=== PATIENT | female | born 1995 | race African-American/Black ===

== ENCOUNTER 2018-08-15 16:33 | Emergency (ER) | payer OTHER ==
[~2018-08-15] VITALS: Ht 152.4 cm; Wt 72.6 kg
--- NOTE | ~2018-08-15 | EKG ---
[address] [address] [facility] [address] ELECTROCARDIOGRAM REPORT Name: KATEY SAMS Room #: [facility] EDDIE Champion#: [id number] Admission: 08/15/18 Attend Phys: Discharge: 08/15/18 Date of : [birth year] Report #: [id number] THIS REPORT FOR: //name// [facility] ED Test Date: 2018-08-15 Test Time: 16:48:29 Pat Name: KATEY SAMS Department: Room: Gender: Diet Therapist: JLNAMRATA : 1995 Requested By: Filiberto Peoples Order Number: [id number] MD: Reyes Mcwilliams Measurements Intervals [place] Rate: 71 P: 8 CT: 153 QRS: 23 QRSD: 86 T: 12 QT: 372 QTc: 405 Interpretive Statements Sinus rhythm RSR' in V1 or V2, probably normal variant Compared to ECG 09/12/2017 20:52:26 No significant change was found Electronically Signed On 08-16-2018 10:47:03 UNIT AIDE by Reyes Mcwilliams [email or web address] <ELECTRONICALLY SIGNED> By: Reyes Mcwilliams MD, [facility] 08/16/18 1047 D: [id number] Reyes Mcwilliams MD, FACC /EPI
[~2018-08-15 16:33] MED LIST: LOPERAMIDE 2 MG2 M1 PO; NOHOMEMEDICATIONS; NORCO 5-325 TA1 EACH PO; ONDANSETRON HCL4 M2 PO; PROTONIX40 MG PO
[2018-08-15 18:56] VITALS: BP 121/99
[2018-08-15] MEDS ORDERED: PROMETH-CODEIN 65 ML PO (18:56)
[2018-08-15] MEDS ORDERED: MOBIC7.5 MG PO (18:56)
== END 2018-08-15 19:04 | disposition home or self-care (01) ==
LOC: ER 16:33
DX: R09.1 Pleurisy (principal); R05 Cough; Z98.890 Other specified postprocedural states; Z90.49 Acquired absence of other specified parts of digestive tract

== ENCOUNTER 2019-02-07 21:02 | Emergency (ER) | payer OTHER ==
[~2019-02-07] VITALS: Ht 152.4 cm; Wt 63.5 kg
[~2019-02-07 21:02] MED LIST changes: +MOBIC7.5 MG PO; +PROMETH-CODEIN 65 ML PO
[2019-02-07 21:11] VITALS: BP 115/89
[2019-02-07] MEDS ORDERED: BENADRYL25 MG PO (22:33)
== END 2019-02-07 22:44 | disposition home or self-care (01) ==
LOC: ER 21:02
DX: R21 Rash and other nonspecific skin eruption (principal); Z90.49 Acquired absence of other specified parts of digestive tract; Z98.890 Other specified postprocedural states

== ENCOUNTER 2019-02-15 13:30 | Emergency (ER) | payer OTHER ==
[~2019-02-15] VITALS: Ht 152.4 cm; Wt 63.5 kg
[~2019-02-15 13:30] MED LIST changes: +BENADRYL25 MG PO
[2019-02-15 13:53] LABS: URINE BLOOD NEGATIVE (Negative); URINE CLARITY CLEAR; URINE COLOR YELLOW; URINE GLUCOSE-RANDOM* NEGATIVE (Negative); URINE KETONES NEGATIVE (Negative); URINE NITRITE-REFLEX NEGATIVE (Negative); URINE PROTEIN (DIPSTICK) NEGATIVE (Negative)
[2019-02-15 13:55] LABS: URINE LEUKOCYTES-REFLEX 1+ (Negative)
[2019-02-15 13:56] LABS: ICTOTEST (BILI CONFIRMATORY) Negative (Negative); URINE BILIRUBIN NEGATIVE (Negative)
[2019-02-15 14:01] LABS: SQUAMOUS 0-3 Few /LPF (0-3); URINE WBC-REFLEX 6-15 Few /HPF (0-5)
[2019-02-15 14:02] LABS: BACTERIA-REFLEX >30 Many /HPF (None Seen); CASTS None Seen /LPF (None Seen); CRYSTALS None Seen /LPF (None Seen); URINE RBC None Seen /HPF (0-2)
[2019-02-15] MEDS ORDERED: PHENAZOPYRIDIN200 M2 PO (14:49)
[2019-02-15] MEDS ORDERED: KEFLEX500 M1 PO (14:49)
[2019-02-15 14:55] VITALS: BP 129/74
== END 2019-02-15 14:55 | disposition home or self-care (01) ==
LOC: ER 13:30
PROVIDERS: Physician Assistant
DX: N39.0 Urinary tract infection, site not specified (principal); Z98.890 Other specified postprocedural states; Z90.49 Acquired absence of other specified parts of digestive tract

== ENCOUNTER 2019-06-03 13:18 | Emergency (ER) | payer OTHER ==
[~2019-06-03] VITALS: Ht 162.6 cm; Wt 59.9 kg
[~2019-06-03 13:18] MED LIST changes: +KEFLEX500 M1 PO; +PHENAZOPYRIDIN200 M2 PO
[2019-06-03] MEDS ORDERED: CYCLOBENZAPRINE5 MG PO (13:59)
[2019-06-03] MEDS ORDERED: MEDROLDOSEPACK PO (13:59)
[2019-06-03] MEDS ORDERED: ULTRAM 50MG TAB50 MG PO (13:59)
== END 2019-06-03 14:16 ==
LOC: ER 13:18
DX: M54.10 Radiculopathy, site unspecified (principal); M62.830 Muscle spasm of back; Z90.49 Acquired absence of other specified parts of digestive tract; Z98.890 Other specified postprocedural states

== ENCOUNTER 2019-12-21 17:05 | Emergency (ER) | payer OTHER ==
[~2019-12-21] VITALS: Ht 152.4 cm; Wt 72.6 kg
[~2019-12-21 17:05] MED LIST changes: +CYCLOBENZAPRINE5 MG PO; +MEDROLDOSEPACK PO; +ULTRAM 50MG TAB50 MG PO
[2019-12-21 17:29] LABS: URINE BILIRUBIN NEGATIVE (Negative); URINE BLOOD NEGATIVE (Negative); URINE COLOR YELLOW; URINE GLUCOSE-RANDOM* NEGATIVE (Negative); URINE KETONES NEGATIVE (Negative); URINE LEUKOCYTES-REFLEX NEGATIVE (Negative); URINE NITRITE-REFLEX NEGATIVE (Negative); URINE PROTEIN (DIPSTICK) NEGATIVE (Negative)
[2019-12-21 17:31] LABS: URINE CLARITY SL HAZY
[2019-12-21 17:46] LABS: BASOPHILS 0.5 % (0.0-2.0); EOSINOPHILS 1.5 % (0.0-3.0); HEMATOCRIT 32.9 % (37.0-47.0); HEMOGLOBIN 11.5 gm/dL (12.0-15.0); LYMPHOCYTES 35.7 % (24.0-44.0); MCHC 35.1 g/dL (28.0-37.0); MCV 73.9 fL (80.0-100.0); MONOCYTES 8.3 % (1.0-8.0); PLATELET COUNT 345 thou/uL (150-400); RBC 4.44 mil/uL (4.20-5.00); WBC 9.2 thou/uL (4.0-11.0)
[2019-12-21 17:56] LABS: CALCIUM 8.3 mg/dL (8.5-10.1); CREATININE 0.6 mg/dL (0.6-1.0); POTASSIUM 3.4 mmol/L (3.5-5.1)
[2019-12-21 18:02] LABS: ALBUMIN 3.2 g/dL (3.4-5.0); TOTAL BILIRUBIN 0.3 mg/dL (<0.1-1.0); TOTAL PROTEIN 6.4 g/dL (6.4-8.2)
[2019-12-21 21:26] VITALS: BP 103/58
== END 2019-12-21 21:30 | disposition home or self-care (01) ==
LOC: ER 17:05
PROVIDERS: Nurse Practitioner Family
DX: O20.0 Threatened abortion (principal); R10.2 Pelvic and perineal pain; N89.8 Other specified noninflammatory disorders of vagina; Z20.2 Contact with and (suspected) exposure to infections with a predominantly sexual mode of transmission; Z3A.01 Less than 8 weeks gestation of pregnancy; Z90.49 Acquired absence of other specified parts of digestive tract; Z79.899 Other long term (current) drug therapy

== ENCOUNTER 2020-05-30 12:30 | Emergency (ER) | payer OTHER ==
[~2020-05-30] VITALS: Ht 152.4 cm; Wt 72.6 kg
[2020-05-30 13:11] LABS: URINE BILIRUBIN NEGATIVE (Negative); URINE BLOOD NEGATIVE (Negative); URINE CLARITY CLEAR; URINE COLOR YELLOW; URINE GLUCOSE-RANDOM* NEGATIVE (Negative); URINE KETONES NEGATIVE (Negative); URINE LEUKOCYTES-REFLEX NEGATIVE (Negative); URINE NITRITE-REFLEX NEGATIVE (Negative); URINE PROTEIN (DIPSTICK) NEGATIVE (Negative); URINE SPECIFIC GRAVITY >= 1.030 (1.005-1.035)
[2020-05-30 14:29] LABS: HEMATOCRIT 29.5 % (37.0-47.0); HEMOGLOBIN 10.3 gm/dL (12.0-15.0); MCH 21.8 pg (26.0-34.0); MCHC 35.1 g/dL (28.0-37.0); MCV 62.2 fL (80.0-100.0); PLATELET COUNT 341 thou/uL (150-400); RBC 4.74 mil/uL (4.20-5.00); RDW 20.9 % (10.5-14.5); WBC 7.4 thou/uL (4.0-11.0)
[2020-05-30 14:33] LABS: CALCIUM 8.7 mg/dL (8.5-10.1); CREATININE 0.7 mg/dL (0.6-1.0); POTASSIUM 3.6 mmol/L (3.5-5.1)
[2020-05-30 14:39] LABS: ALBUMIN 3.2 g/dL (3.4-5.0); DIRECT BILIRUBIN 0.3 mg/dL (<0.1-0.2); TOTAL BILIRUBIN 0.8 mg/dL (0.2-1.0); TOTAL PROTEIN 7.8 g/dL (6.4-8.2)
[2020-05-30 15:09] LABS: ABSOLUTE NEUTROPHILS 4.3 thou/uL (1.4-8.2)
[2020-05-30 15:10] LABS: ANISOCYTOSIS 2+; HYPOCHROMASIA 1+; MICROCYTES 2+; POLYCHROMASIA OCCASIONAL
[2020-05-30 17:23] VITALS: BP 107/72
[2020-05-30] MEDS ORDERED: ZOFRAN ODT4 MG PO (17:24)
[2020-05-30] MEDS ORDERED: NORCO 5-325 TA1 EAC2 PO (17:24)
== END 2020-05-30 17:30 | disposition home or self-care (01) ==
LOC: ER 12:30
PROVIDERS: Emergency Medicine
DX: R10.30 Lower abdominal pain, unspecified (principal); R10.10 Upper abdominal pain, unspecified; R11.0 Nausea; Z98.890 Other specified postprocedural states; Z90.49 Acquired absence of other specified parts of digestive tract; Z88.5 Allergy status to narcotic agent

== ENCOUNTER 2020-09-02 11:56 | Emergency (ER) | payer OTHER ==
[~2020-09-02] VITALS: Ht 152.4 cm; Wt 81.7 kg
[~2020-09-02 11:56] MED LIST changes: +NORCO 5-325 TA1 EAC2 PO; +ZOFRAN ODT4 MG PO
[2020-09-02 12:58] LABS: URINE BILIRUBIN NEGATIVE (Negative); URINE BLOOD NEGATIVE (Negative); URINE CLARITY CLEAR; URINE COLOR YELLOW; URINE GLUCOSE-RANDOM* NEGATIVE (Negative); URINE KETONES NEGATIVE (Negative); URINE LEUKOCYTES-REFLEX NEGATIVE (Negative); URINE NITRITE-REFLEX NEGATIVE (Negative); URINE PROTEIN (DIPSTICK) NEGATIVE (Negative); URINE SPECIFIC GRAVITY >= 1.030 (1.005-1.035); URINE UROBILINOGEN 0.2 E.U./dl (0.2-1.0)
[2020-09-02] MEDS ORDERED: ZOFRAN ODT4 MG PO (13:14)
[2020-09-02 13:22] VITALS: BP 114/61
== END 2020-09-02 13:22 | disposition home or self-care (01) ==
LOC: ER 11:56
PROVIDERS: Emergency Medicine
DX: R11.2 Nausea with vomiting, unspecified (principal); R19.7 Diarrhea, unspecified; Z90.49 Acquired absence of other specified parts of digestive tract; Z79.899 Other long term (current) drug therapy; Z88.5 Allergy status to narcotic agent

== ENCOUNTER 2021-04-23 18:51 | Emergency (ER) | payer OTHER ==
[~2021-04-23] VITALS: Ht 152.4 cm; Wt 72.6 kg
[2021-04-23 18:57] VITALS: BP 116/74
[2021-04-23 19:16] LABS: URINE BILIRUBIN NEGATIVE (Negative); URINE BLOOD 3+ (Negative); URINE CLARITY CLEAR; URINE COLOR YELLOW; URINE GLUCOSE-RANDOM* NEGATIVE (Negative); URINE KETONES NEGATIVE (Negative); URINE NITRITE-REFLEX NEGATIVE (Negative); URINE PROTEIN (DIPSTICK) 2+ (Negative); URINE SPECIFIC GRAVITY >= 1.030 (1.005-1.035); URINE UROBILINOGEN 0.2 E.U./dl (0.2-1.0)
[2021-04-23 19:33] LABS: URINE LEUKOCYTES-REFLEX 1+ (Negative)
[2021-04-23 19:35] LABS: SQUAMOUS 0-3 Few /LPF (0-3)
[2021-04-23 19:36] LABS: CASTS None Seen /LPF (None Seen)
[2021-04-23 19:37] LABS: BACTERIA-REFLEX >30 Many /HPF (None Seen); CRYSTALS None Seen /LPF (None Seen); URINE RBC 3-10 Few /HPF (NONE SEEN); URINE WBC-REFLEX >25 Many /HPF (0-5)
[2021-04-23 19:38] LABS: MUCUS 4-6 Moderate strn/LPF (None Seen)
[2021-04-23] MEDS ORDERED: CEPHALEXIN500 MG PO (20:14)
[2021-04-23] MEDS ORDERED: PYRIDIUM100 M1 PO (20:15)
== END 2021-04-23 20:23 | disposition home or self-care (01) ==
LOC: ER 18:51
PROVIDERS: Nurse Practitioner
DX: N39.0 Urinary tract infection, site not specified (principal); Z90.49 Acquired absence of other specified parts of digestive tract; Z79.899 Other long term (current) drug therapy; Z79.891 Long term (current) use of opiate analgesic; Z88.6 Allergy status to analgesic agent; Z98.890 Other specified postprocedural states

== ENCOUNTER 2021-06-04 07:51 | Emergency (ER) | payer OTHER ==
[~2021-06-04] VITALS: Ht 152.4 cm; Wt 77.1 kg
[~2021-06-04 07:51] MED LIST changes: +CEPHALEXIN500 MG PO; +PYRIDIUM100 M1 PO
[2021-06-04 07:56] VITALS: BP 122/71
== END 2021-06-04 08:49 | disposition home or self-care (01) ==
LOC: ER 07:51
PROVIDERS: Student in an Organized Health Care Education/Training Program
DX: J06.9 Acute upper respiratory infection, unspecified (principal); Z20.822 Contact with and (suspected) exposure to COVID-19; Z98.890 Other specified postprocedural states; Z90.49 Acquired absence of other specified parts of digestive tract; Z88.5 Allergy status to narcotic agent

== ENCOUNTER 2021-06-29 19:19 | Emergency (ER) | payer OTHER ==
[~2021-06-29] VITALS: Ht 152.4 cm; Wt 72.6 kg
[2021-06-29 19:33] VITALS: BP 135/84
[2021-06-29] MEDS ORDERED: NOHOMEMEDICATIONS (19:36)
[2021-06-29 19:40] LABS: URINE BILIRUBIN NEGATIVE (Negative); URINE BLOOD 3+ (Negative); URINE COLOR YELLOW; URINE GLUCOSE-RANDOM* NEGATIVE (Negative); URINE KETONES NEGATIVE (Negative); URINE NITRITE-REFLEX NEGATIVE (Negative); URINE PROTEIN (DIPSTICK) NEGATIVE (Negative)
[2021-06-29 19:42] LABS: URINE CLARITY HAZY; URINE LEUKOCYTES-REFLEX 1+ (Negative)
[2021-06-29 19:47] LABS: SQUAMOUS 0-3 Few /LPF (0-3); URINE WBC-REFLEX >25 Many /HPF (0-5)
[2021-06-29 19:48] LABS: BACTERIA-REFLEX >30 Many /HPF (None Seen); CASTS None Seen /LPF (None Seen); CRYSTALS None Seen /LPF (None Seen); URINE RBC >20 Many /HPF (NONE SEEN)
[2021-06-29] MEDS ORDERED: CEPHALEXIN500 MG PO (19:55)
== END 2021-06-29 20:32 | disposition home or self-care (01) ==
LOC: ER 19:19
PROVIDERS: Nurse Practitioner
DX: N39.0 Urinary tract infection, site not specified (principal); Z90.49 Acquired absence of other specified parts of digestive tract; Z88.6 Allergy status to analgesic agent

== ENCOUNTER 2021-08-21 16:22 | Emergency (ER) | payer OTHER ==
[~2021-08-21] VITALS: Ht 152.4 cm; Wt 77.1 kg
[2021-08-21 16:33] VITALS: BP 114/59
== END 2021-08-21 17:25 | disposition home or self-care (01) ==
LOC: ER 16:22
PROVIDERS: Emergency Medicine
DX: U07.1 COVID-19 (principal); J06.9 Acute upper respiratory infection, unspecified; Z98.890 Other specified postprocedural states; Z90.49 Acquired absence of other specified parts of digestive tract; Z79.899 Other long term (current) drug therapy; Z88.5 Allergy status to narcotic agent